=== PATIENT | male | born 1955 | race Caucasian/White ===

== ENCOUNTER 2018-04-04 10:01 | Emergency (ER) | payer OTHER ==
[2018-04-04] MEDS: MECLIZINE 12.5 MG TAB PO (10:47)
== END 2018-04-04 12:14 | disposition home or self-care (01) ==
LOC: E/R 10:01
DX: R42 Dizziness and giddiness (principal); R11.10 Vomiting, unspecified
CPT/HCPCS: 70450; 99284-25